=== PATIENT | male | born 1960 | race Caucasian/White ===

== ENCOUNTER 2018-05-16 09:36 | Emergency (ER) | payer BC ==
[~2018-05-16] VITALS: Ht 167.6 cm; Wt 104.3 kg
[2018-05-16] MEDS ORDERED: LORAZEPAM INJ 2 MG/ML VIAL IV NR (11:15)
[2018-05-16] MEDS ORDERED: SODIUM CHLORIDE 0.9% 1000ML 1,000 ML IV STA (11:15)
[2018-05-16] MEDS ORDERED: MORPHINE SULFATE INJ 4 MG/ML INJ IV ONE (11:30)
[2018-05-16] MEDS ORDERED: ONDANSETRON HCL INJ 2 MG/ML VIAL IV ONE (11:30)
[2018-05-16 11:57] LABS: BASOPHILS % 0.3 % (0.0-1.0); EOSINOPHILS % 0.1 % (0.0-6.0); HEMATOCRIT 45.3 % (38.2-49.6); HEMOGLOBIN 15.9 g/dL (14.0-18.0); LYMPHOCYTES # (AUTO) 0.9 (1.0-3.2); MEAN CORPUSCULAR HEMOGLOBIN 32.3 pg (28-32); MEAN CORPUSCULAR HGB CONC 35.1 g/dL (31-35); MEAN CORPUSCULAR VOLUME 91.9 fL (81-99); MONOCYTES # (AUTO) 0.8 (0.2-0.8); MONOCYTES % 5.6 % (4.4-11.3); NEUTROPHILS # (AUTO) 12.7 (2.1-6.9); NEUTROPHILS % 87.5 % (38.7-80.0); PLATELET COUNT 223 x10e3/uL (140-360); RED BLOOD COUNT 4.93 x10e6/uL (4.3-5.7); RED CELL DISTRIBUTION WIDTH 12.1 % (11.7-14.4)
[2018-05-16 12:12] LABS: ANION GAP 13.1 mmol/L (8-16); BLOOD UREA NITROGEN 18 mg/dL (7-26); BUN/CREATININE RATIO 15 (6-25); CALCIUM 9.2 mg/dL (8.4-10.2); CARBON DIOXIDE 24 mmol/L (22-29); CHLORIDE 102 mmol/L (98-107); EST GLOMERULAR FILTRATION RATE > 60 ML/MIN (60-); GLUCOSE 158 mg/dL (74-118); MAGNESIUM 2.2 MG/DL (1.3-2.1); POTASSIUM 4.1 mmol/L (3.5-5.1); SODIUM 135 mmol/L (136-145)
[2018-05-16 12:26] LABS: BILIRUBIN,URINE NEGATIVE (NEGATIVE); CLARITY,URINE CLOUDY (CLEAR); COLOR,URINE YELLOW (YELLOW); KETONES,URINE TRACE (NEGATIVE); LEUKOCYTE ESTERASE ,URINE NEGATIVE (NEGATIVE); NITRITE,URINE NEGATIVE (NEGATIVE); PROTEIN,URINE DIPSTICK TRACE (NEGATIVE); URINE UROBILINOGEN 0.2 mg/dL (0.2 - 1)
[2018-05-16 12:36] LABS: BACTERIA,URINE RARE /HPF; EPITHELIAL CELLS,URINE RARE /LPF
--- NOTE | 2018-05-16 12:58 | Diagnostic Imaging Report ---
EXAMINATION: CT of the abdomen and pelvis without contrast. TECHNIQUE: Spiral CT images of the abdomen and pelvis were performed from the lung bases to the lesser trochanters. No intravenous contrast was given per renal stone protocol. Coronal and sagittal reformatted images were obtained. COMPARISON: None. CLINICAL HISTORY:Right flank pain DISCUSSION: ABSENCE OF INTRAVENOUS CONTRAST DECREASES SENSITIVITY FOR DETECTION OF FOCAL LESIONS AND VASCULAR PATHOLOGY. ABDOMEN/PELVIS: LOWER THORAX: 2 mm nodule left lower lobe series 3 image 41 HEPATOBILIARY:Hepatic parenchyma is diffusely hypoattenuating compatible with steatosis. No focal hepatic lesion or intrahepatic biliary ductal dilatation. The gallbladder is unremarkable. SPLEEN: No splenomegaly. PANCREAS: No focal masses or ductal dilatation. ADRENALS: No adrenal nodules. KIDNEYS/URETERS: Right perinephric and periureteral inflammatory stranding and mild hydroureteronephrosis related to a 3-4 mm ureterovesical junction calculus seen on series 3 image 153. No additional renal, ureteral, or bladder calculi with the exception of a punctate nonobstructing left upper pole renal calculus series 3 image 59. PELVIC ORGANS/BLADDER: Urinary bladder is otherwise unremarkable. Prostate is notable for coarse central calcifications. PERITONEUM/RETROPERITONEUM: No ascites. No pneumoperitoneum. LYMPH NODES: No pelvic sidewall, retroperitoneal, or mesenteric lymphadenopathy. VESSELS: The abdominal aorta is nonaneurysmal, with scattered foci of atherosclerotic calcifications. Evaluation is otherwise limited without intravenous contrast. GI TRACT: The large bowel shows no evidence of distention or wall thickening. There are scattered diverticula along the descending and sigmoid colon without wall thickening or inflammatory change. Segments of the large bowel are collapsed and poorly evaluated. The appendix is normal. Small duodenal diverticulum. No small bowel dilatation to suggest obstruction BONES AND SOFT TISSUES: Small fat-containing left inguinal hernia. Small fat-containing umbilical hernia. Otherwise no focal soft tissue abnormalities. No osseous destructive lesions. Mild degenerative disc disease and degenerative facet arthropathy of the lumbosacral spine. IMPRESSION: 3-4 mm right ureterovesical junction calculus results in trace hydroureteronephrosis and perinephric-periureteral inflammation. Punctate nonobstructing left upper pole renal calculus. Hepatic steatosis. Large bowel diverticulosis without evidence of diverticulitis. Atherosclerotic vascular disease. Signed by: Dr. Rene Haile M.D. on 05/16/2018 12:55 PM
[2018-05-16] MEDS ORDERED: CEFTRIAXONE SOD 1 GM VIAL IM ONE (13:00)
[2018-05-16] MEDS ORDERED: CEFTRIAXONE SOD 1 GM/NS 50 ML 50 ML IV ONE (13:30)
[2018-05-16] MEDS ORDERED: FLOMAX0.4 MG PO (13:50)
[2018-05-16] MEDS ORDERED: TYLENOL WITH C1 EACH PO (13:50)
[2018-05-16] MEDS ORDERED: ZOFRAN4 MG SL (13:50)
[2018-05-16] MEDS ORDERED: CIPRO500 MG PO (13:50)
[2018-05-16 14:47] VITALS: BP 142/72
== END 2018-05-16 14:51 | disposition home or self-care (01) ==
LOC: ER 09:36
DX: M54.5 Low back pain (principal); R10.9 Unspecified abdominal pain; R11.2 Nausea with vomiting, unspecified; N20.1 Calculus of ureter; I10 Essential (primary) hypertension
CPT/HCPCS: 36415; 74176; 80048; 81001; 83735; 85025; 87086; 99284; J0696; J2060; J2270; J2405; J7030